=== PATIENT | female | born 1985 | race Caucasian/White ===

== ENCOUNTER → 2018-03-19 10:06 | Outpatient (CLI) | payer OTHER, SELFPAY ==
--- NOTE | 2018-03-19 10:11 | XR_ITS ---
EXAM: XR cervical spine 5V HISTORY: Neck pain and stiffness ITS.REASON: NECK PAIN ORDERING PHYSICIAN: Karuna Mendez MD PATIENT AGE: 33 years COMPARISON: None FINDINGS: Normal alignment. No fracture or dislocation. No lytic or blastic change. No significant degenerative change. The disc spaces are preserved. There is mild cervical curvature convex left with mild head tilt to the right. No cervical rib Foramina are widely patent IMPRESSION: Essentially negative cervical spine
== END ==
PROVIDERS: PCP Emergency Medicine; Visit Provider Emergency Medicine
DX: M54.2 Cervicalgia (principal)
CPT/HCPCS: 72050

== ENCOUNTER → 2019-10-02 08:58 | Outpatient (CLI) | payer OTHER, SELFPAY ==
[2019-10-02 10:02] LABS: Chloride 101 mmol/L (98-107)
[2019-10-02 10:03] LABS: Potassium 4.9 mmoL/L (3.5-5.1); Sodium 141 mmol/L (136-145)
[2019-10-02 10:06] LABS: Anion Gap 13.9 mEq/L (5-15); Blood Urea Nitrogen 19 mg/dl (7-17); Calcium 9.5 mg/dl (8.4-10.2); Carbon Dioxide 31 mmol/L (22.0-30.0); Estimated Glomerular Filt Rate 114 ml/min (>60); GFR (African American) 138 ML/MIN (>60); Glucose 78 mg/dl (74-100)
[2019-10-02 10:17] LABS: Basophils % 0.6 % (0.1-2.0); Eosinophils # 0.1 K/mm3 (0.0-0.4); Hematocrit 45.8 % (37.0-47.0); Hemoglobin 15.2 g/dL (12.2-16.2); Lymphocytes # 1.9 K/mm3 (0.7-4.5); Lymphocytes % 33.7 % (10-50); Mean Corpuscular HGB Conc 33.1 g/dL (31.8-35.4); Mean Corpuscular Hemoglobin 30.2 pg (27.0-31.2); Mean Corpuscular Volume 91.2 fl (81-99); Monocytes # 0.3 K/mm3 (0.1-1.0); Monocytes % 4.6 % (1.7-9.3); Neutrophils # 3.4 K/mm3 (1.8-7.8); Neutrophils % 59.1 % (37.0-80.0); Platelet Count 197 K/mm3 (142-424); Red Blood Count 5.02 M/mm3 (4.20-5.40); Red Cell Distribution Width 12.8 % (11.5-17.5); White Blood Count 5.7 K/mm3 (4.8-10.8)
[2019-10-02 10:35] LABS: HCG Qualitative, Serum Negative (Negative)
[2019-10-02 11:28] LABS: Coronavirus 19 IgG Antibody Positive (Negative); Coronavirus 19 IgM Antibody Negative (Negative)
== END ==
PROVIDERS: Visit Provider Nurse Practitioner Obstetrics & Gynecology
DX: Z01.818 Encounter for other preprocedural examination (principal); Z30.09 Encounter for other general counseling and advice on contraception; N92.0 Excessive and frequent menstruation with regular cycle
CPT/HCPCS: 36415; 80048; 84703; 85025; 86328

== ENCOUNTER 2019-10-03 06:08 | Day surgery (SDC) | payer OTHER, SELFPAY ==
[2019-10-01 09:01] VITALS: BMI 30.2
[2019-10-03] VITALS (12 sets, daily range): BP systolic 95–147; BP diastolic 55–82; PULSE 64–95; RESP 16–18; TEMP 36.7–43; O2SAT 96–98
--- NOTE | 2019-10-03 07:00 | HMH.ANESCL ---
[facility] Anesthesia Checklist - Patient Identification Patient Identification: Arm Band, Verbal (Name & ) - Structural Data Admitted From: Home Planned Operative Procedure/s: Laparoscopic bilateral salpingectomy, hysteroscopy, D&C, Novasure Consent for Planned Operative Procedure(s) Verified: Yes Verified Documents: Surgical Consent, History and Physical - NPO Status Verified Time NPO: 19:00 - Chart Verification Results Verified: CBC, BMP, UA, HCG - Additional verifications Patient : No Anesthesia Reactions: No Hx Blood Transfusions: Yes Blood Transfusion Reaction: No - Airway Assessment C-Spine Mobility Assessed: Yes TMJ Mobility Assessed: Yes Dentition: Good Dentition - Neurological Assessment Level of Consciousness: Awake, Alert, Appropriate, Follows Commands Hx Seizures: No Numbness or tingling in extremities: No - Anesthesia Plan Anesthesia Risk discussed: Yes Anesthesia Plan: Verified ASA Class: I Anesthesia Type: General [facility] History I have reviewed the patient's past medical history: Yes Medical History: Denies:: Cancer, Diabetes Mellitus Type 1, Diabetes Mellitus Type 2, Internal Pacemaker, MRSA, Seizures *Have you ever received a pneumonia vaccine?: No *Have you received a flu vaccine this season?: Yes Other Medical History: Denies: Blood Transfusion Reaction Comment:: obesity Anesthesia experience/problems:: No prior complications Other Surgeries: Yes: Cholecystectomy. No: Pacemaker Amputation: No Fractures: No - *Social History Last grade of school completed: Advanced degree Smoking Status: Never smoker Alcohol Intake: never Substance Use Type: denies use *Occupational Status:: employed Housing: house Household Members: family *Travel in the last 8 weeks: None Family Hx:: Coronary Artery Disease, Stroke, Hypertension, Diabetes, Cancer, Thyroid Disorder
--- NOTE | 2019-10-03 08:18 | HMH.OPNOTE ---
Date of procedure: 10/03/19 Pre-op Diagnosis:: Desire for sterilization, menorrhagia Post-op Diagnosis:: Desire for sterilization menorrhagia, endometriosis Procedure performed:: Laparoscopic bilateral salpingectomy, removal of bladder peritoneum endometriosis, hysteroscopy, dilation and curettage, NovaSure ablation, removal of IUD Surgeon:: Matt Leong MD [employer]OSING COORDINATOR:: Eb Randolph Anesthesia: GETA Estimated blood loss (mL): 100 Clinical Note:: She is a 34-year-old lady who complains of very heavy periods. She also expressed desire for sterilization. The risks and benefits as well as irreversibility of bilateral salpingectomy were discussed with the patient prior to surgery. She also asked me to remove her Mirena IUD. Operative findings:: She had a normal-appearing anteverted uterus. The pelvis appeared normal. The appendix was visualized and appeared normal. The ovaries and tubes appeared normal. On the bladder peritoneum just to the right of midline there was a small 3 mm powder burn area on the peritoneum consistent with endometriosis. The upper abdomen appeared normal as well. There was some adhesions of the omentum to the underside of the liver on the right side. Operative note:: She was taken to the operating room where general anesthesia was found be adequate. She was prepped and draped in normal sterile fashion in the semilithotomy position. A weighted speculum was placed in the vagina and the anterior lip of the cervix was grasped with a tenaculum. I then inserted a Paulina uterine manipulator into the cervical os. The balloon was then insufflated. I changed gloves and injected 10 cc of 0.5% ropivacaine around her umbilicus and made a small incision within the umbilicus. I inserted a Veress needle into the abdominal cavity. The peritoneal cavity was then insufflated with carbon dioxide gas to a pressure of 20 mmHg. I then inserted a 5 millimeter trocar under direct vision. I injected through and through the pubic hairline, made a small incision here and inserted an 8 mm trocar under direct vision. I identified the inferior epigastric artery on the left side, went lateral to these and injected through and through. I then placed a 5 mm trocar here under direct vision. The pelvis and upper abdomen were then inspected and the findings were as previously dictated. I grasped the right tube at the cornua and using harmonic scalpel on coagulation mode I cut through the tube. I then grasped the distal tube and using harmonic scalpel cut along the mesosalpinx. The tube was removed through 8 mm trocar site. This was similarly performed on the patient's left side. I then injected 30 cc of 0.5% ropivacaine into the pelvis. After assuring hemostasis the gas was let out of the abdomen and hemostasis was once again assured. The abdomen was then reinsufflated. The secondary trochars were removed under direct vision. The gas was let out her abdomen. The primary trocar was then removed. The 8 mm trocar site was closed deeply with 2-0 Vicryl suture followed by subcuticular 4-0 Monocryl suture. The 5 mm trocar sites were closed with subcuticular 4-0 Monocryl. Sterile dressings were applied. A weighted speculum was placed in the vagina and the anterior lip of the cervix was grasped with a tenaculum. The cervix was then dilated to approximately 6 mm. I then inserted a hysteroscope into the uterine cavity and the endometrial cavity appears lush. There was an IUD in place and I was able to remove this with a packing forceps. I then performed a gentle curettage with a medium curette. I then sounded the uterus and determine the length of the uterus. This was placed into the NovaSure device. I then inserted the NovaSure device and determine the width of the endometrial cavity. The cervix was quite patulous and I placed a tenaculum on the lateral side of the cervix to get good closure of the cervical canal.I then ran the device through its p
--- NOTE | 2019-10-03 08:25 | P.PN_ITS ---
[facility] Anesthesia Record Part I Intake, IV Amount: 900 Estimated blood loss (mL): 50 Urine output (mL): 50 Blood Products used (#): none Blood Pressure: 102/66 SaO2: 97 Pulse Rate: 64 Respiratory Rate: 16 Temperature: 98.2 F Patient is:: Awake, Drowsy, Stable Stable to PACU at:: 08:22
--- NOTE | 2019-10-03 10:14 | P.PN_ITS ---
[facility] Anesthesia Record Part II Discharge Time: 08:52 Destination: Surgical Day Care (OP Surgery) PACU nurse assessment reviewed?: Yes Patient Condition:: Good Anesthesia Complications:: None Swallowing reflex intact?: Yes Cyanosis?: No Blood Pressure: 97/56 Pulse Rate: 70 Temperature: 98.0 F Mental Status: Alert & Oriented Pain level:: 3 Nausea and/or vomitting:: None Intake, IV Amount: 0
== END 2019-10-03 09:38 | disposition home or self-care (01) ==
PROVIDERS: PCP Family Medicine; Visit Provider Nurse Practitioner Obstetrics & Gynecology
PROC: 0U5B8ZZ Destruction of Endometrium, Via Natural or Artificial Opening Endoscopic (ICD-10-PCS; CPT 58563; principal; 2019-10-03 07:30)
DX: Z30.2 Encounter for sterilization (principal); N92.0 Excessive and frequent menstruation with regular cycle; N80.3 Endometriosis of pelvic peritoneum; Z90.49 Acquired absence of other specified parts of digestive tract; Z82.49 Family history of ischemic heart disease and other diseases of the circulatory system; Z84.89 Family history of other specified conditions; Z83.3 Family history of diabetes mellitus; Z80.9 Family history of malignant neoplasm, unspecified; Z79.899 Other long term (current) drug therapy
CPT/HCPCS: 58661; 58563; 58301; 96374; J2405; J2710

== ENCOUNTER → 2022-05-12 14:22 | Outpatient (CLI) | payer BC, OTHER, SELFPAY ==
--- NOTE | 2022-05-12 14:23 | MM_ITS ---
PROCEDURE INFORMATION: Exam: Bilateral Diagnostic Breast Tomosynthesis Exam date and time: 05/12/2022 2:21 PM Age: 37 years old Clinical indication: Skin changes left breast; Cellulitis, pain, and burning of left breast. TECHNIQUE: Imaging protocol: Bilateral Diagnostic tomosynthesis and 2D mammography including computer-aided detection (CAD) when performed. Unilateral or bilateral exam. COMPARISON: No relevant prior studies available. FINDINGS: MAMMOGRAPHY: The breast tissue is composed of scattered areas of fibroglandular density. There is no stellate mass, architectural distortion or suspicious microcalcifications in either breast to suggest malignancy. No skin thickening or axillary adenopathy. IMPRESSION: Patient to return for left breast ultrasound for full evaluation of cellulitis and pain as described in the clinical intake. ASSESSMENT: BI-RADS Category 0: Incomplete- Need Additional Imaging Evaluation and/or Prior Mammograms for Comparison
== END ==
PROVIDERS: PCP Nurse Practitioner Family; Visit Provider Nurse Practitioner Family
DX: L03.90 Cellulitis, unspecified (principal); N64.59 Other signs and symptoms in breast
CPT/HCPCS: 77062; 77066; G0279

== ENCOUNTER → 2022-05-17 07:45 | Outpatient (CLI) | payer BC, OTHER, SELFPAY ==
--- NOTE | 2022-05-17 07:45 | US_ITS ---
PROCEDURE INFORMATION: Exam: US Left Breast, Complete Exam date and time: 05/17/2022 8:02 AM Age: 37 years old Clinical indication: Red/flattened area; Full evaluation of cellulitis to left breast TECHNIQUE: Imaging protocol: Complete ultrasound of all four quadrants of the left breast and the retroareolar regions, including ultrasound of the axilla when performed. COMPARISON: MG MM DIG MAMM BI DX W/CAD 05/12/2022 2:21 PM FINDINGS: Breast: Sonographic images of the left breast including the retroareolar region, all 4 quadrants and the axilla do not demonstrate any solid or cystic masses. No breast edema. No abscess. No architectural distortion or acoustical shadowing. No skin thickening or axillary adenopathy. IMPRESSION: No sonographic evidence of malignancy. No sonographic findings to suggest mastitis or abscess. In the absence of clinically suspicious findings,annual bilateral mammographic screening is recommended to commence at the age of 40 ASSESSMENT: BI-RADS Category 1: Negative
== END ==
PROVIDERS: PCP Nurse Practitioner Family; Visit Provider Nurse Practitioner Family
DX: N64.59 Other signs and symptoms in breast (principal); L03.818 Cellulitis of other sites
CPT/HCPCS: 76641

== ENCOUNTER 2024-03-13 15:00 | Outpatient (CLI) | payer BC, SELFPAY ==
[2024-03-13 20:53] LABS: Alanine Aminotransferase 23 U/L (12-78); Albumin Level 4.4 g/dl (3.5-5.0); Albumin/Globulin Ratio 1.5 (1.1-1.8); Alkaline Phosphatase 82 U/L (38-126); Anion Gap 13.3 mEq/L (5-15); Aspartate Amino Transferase 29 U/L (14-36); Bilirubin,Total 0.6 mg/dl (0.2-1.3); Blood Urea Nitrogen 17 mg/dl (7-17); Calcium 9.1 mg/dl (8.4-10.2); Carbon Dioxide 25 mmol/L (22.0-30.0); Chloride 103 mmol/L (98-107); Estimated Glomerular Filt Rate 111 ml/min (>60); GFR (African American) 135 ML/MIN (>60); Glucose 76 mg/dl (74-100); Potassium 4.3 mmoL/L (3.5-5.1); Sodium 137 mmol/L (136-145); Total Protein,Serum 7.4 g/dl (6.3-8.2)
== END 2024-03-13 23:59 | disposition home or self-care (01) ==
LOC: LAB.DROPOF 03-14 10:22
PROVIDERS: PCP Nurse Practitioner Family; Visit Provider Nurse Practitioner Family
DX: R10.2 Pelvic and perineal pain (principal); M54.16 Radiculopathy, lumbar region; M79.18 Myalgia, other site; M54.50 Low back pain, unspecified; R10.32 Left lower quadrant pain
CPT/HCPCS: 80053

== ENCOUNTER 2024-03-13 15:25 | Outpatient (CLI) | payer BC, SELFPAY ==
--- NOTE | 2024-03-13 15:31 | XR_ITS ---
FINAL REPORT CLINICAL HISTORY: lumbar pain COMPARISON: None FINDINGS: 3 views of the lumbar spine were obtained. There is no evidence of fracture. There is no malalignment. The vertebrae are normal in height. There is lumbar scoliosis convex to the right measuring approximately 10 degrees. Mild disc space narrowing is noted at L5-S1. No paraspinous soft tissue abnormalities identified. IMPRESSION: Mild degenerative changes without acute bony abnormality. Reviewed, Interpreted and Dictated by Zane Good MD Transcribed by Chapis Dinh Authenticated and [facility]
--- NOTE | 2024-03-13 15:31 | XR_ITS ---
FINAL REPORT CLINICAL HISTORY: left hip pain, left groin pain COMPARISON: None FINDINGS: LEFT HIP: Two views of the left hip with an AP view of the pelvis demonstrate no acute fracture or dislocation. The joint spaces appear normal. The visualized bony structures are well aligned. No soft tissue abnormality is seen. IMPRESSION: No acute bony abnormality. Reviewed, Interpreted and Dictated by Zane Good MD Transcribed by Chapis Dinh Authenticated and . [facility]
[2024-03-13 16:33] LABS: Microscopic, Urine URINE MICROSCOPIC (MICROSCOPIC)
[2024-03-13 17:11] LABS: Basophils % 0.5 % (0.1-2.0); Eosinophils # 0.1 K/mm3 (0.0-0.4); Eosinophils % 1.6 % (0.1-12.0); Hematocrit 40.7 % (37.0-47.0); Hemoglobin 13.6 g/dL (12.2-16.2); Lymphocytes # 1.9 K/mm3 (0.7-4.5); Lymphocytes % 21.8 % (10-50); Mean Corpuscular HGB Conc 33.4 g/dL (31.8-35.4); Mean Corpuscular Hemoglobin 29.1 pg (27.0-31.2); Mean Platelet Volume 9.5 fl (7.4-10.4); Monocytes # 0.6 K/mm3 (0.1-1.0); Monocytes % 7.1 % (1.7-9.3); Neutrophils % 68.8 % (37.0-80.0); Platelet Count 264 K/mm3 (142-424); Red Blood Count 4.68 M/mm3 (4.20-5.40); Red Cell Distribution Width 12.9 % (11.5-17.5); White Blood Count 8.7 K/mm3 (4.8-10.8)
[2024-03-13 17:33] LABS: Appearance,Urine CLEAR (Clear); Bilirubin,Urine Negative (Negative); Blood, Urine Negative (Negative); Color,Urine YELLOW (Yellow); Glucose,Urine (UA) Negative (Negative); Ketones,Urine Negative (Negative); Leukocyte Esterase,Urine Negative (Negative); Nitrate,Urine Negative (Negative); Protein,Urine Negative (Negative); Specific Gravity, Urine 1.015 (1.005-1.030); Urobilinogen,Urine 0.2 EU/dl (0.2)
[2024-03-13 17:56] LABS: Erythrocyte Sedimentation Rate 6 mm/hr (0-20)
[2024-03-13 17:57] LABS: Cholesterol 206 mg/dl (140-200); Iron 89 ug/dL (37-170); Triglycerides 226 mg/dl (30-150); VLDL Cholesterol 45 mg/dL (0-40)
[2024-03-13 17:58] LABS: Chol/HDL Ratio 5.2 (1-3.5); HDL Cholesterol 40 mg/dl (40-60); Magnesium 1.8 mg/dl (1.6-2.3); Phosphorous 4.3 mg/dl (2.5-4.5)
[2024-03-13 18:04] LABS: C-Reactive Protein 4.9 mg/L (0-4)
[2024-03-13 18:07] LABS: Total Iron Binding Capacity 316 ug/dL (265-497)
[2024-03-13 18:16] LABS: Free T4 (Free Thyroxine) 0.92 ng/dl (0.78-2.19)
[2024-03-13 18:18] LABS: 25-OH Vitamin D, Total 44.7 ng/mL (30-100)
[2024-03-13 18:27] LABS: Hemoglobin A1C 4.8 % (4.0-6.0)
[2024-03-13 18:30] LABS: Thyroid Stimulating Hormone 1.26 uIU/mL (0.465-4.68)
[2024-03-13 18:34] LABS: Ferritin 66.9 ng/ml (6.24-137)
[2024-03-13 18:39] LABS: HIV Combo NEGATIVE (Negative)
[2024-03-13 18:47] LABS: Hepatitis C Ab Qual. W/ RFX NEGATIVE (Negative)
[2024-03-13 19:00] LABS: Vitamin B12 736 pg/mL (239-931)
[2024-03-13 19:57] LABS: Amorphous Sediment,Urine 3+ /lpf; Bacteria,Urine 1+ /lpf
== END 2024-03-13 23:59 | disposition home or self-care (01) ==
LOC: RAD 15:26
PROVIDERS: PCP Nurse Practitioner Family; Visit Provider Nurse Practitioner Family
DX: M25.552 Pain in left hip (principal); R10.32 Left lower quadrant pain; M54.50 Low back pain, unspecified; M79.18 Myalgia, other site; M54.16 Radiculopathy, lumbar region; R53.83 Other fatigue; Z68.35 Body mass index [BMI] 35.0-35.9, adult; R10.2 Pelvic and perineal pain; Z11.4 Encounter for screening for human immunodeficiency virus [HIV]; Z11.59 Encounter for screening for other viral diseases; E53.8 Deficiency of other specified B group vitamins; Z13.220 Encounter for screening for lipoid disorders; Z13.1 Encounter for screening for diabetes mellitus
CPT/HCPCS: 72100; 73502; 80061; 81001; 82306; 82607; 82728; 83036; 83540; 83550; 83735; 84100; 84439; 84443; 85025; 85651; 86140; 86803; 87086; 87389

== ENCOUNTER 2024-04-04 17:00 | Outpatient (RCR) | payer BC, SELFPAY ==
--- NOTE | 2024-03-17 17:12 | HMH.PTOPEV ---
PT Outpatient Evaluation Rehab PT Outpatient Evaluation Start: 03/17/24 16:48 Freq: Status: Active Protocol: Document 03/17/24 16:48 COSMO (Rec: 03/17/24 17:12 COSMO [id number]) E-signed By Heath Aleman, PT Outpatient Therapy Subjective History Subjective History The pt is a 39 yof who presents to [facility] outpatient Physical Therapy with complaints of low back pain that refers into the LLE. She reports that she has had LBP on/off for about 2 years. However, in this past September, she bent over while on the commode and reports, my back felt like it went out. She reports that since then she has had a fairly constant pain . She reports that at times, she feels as if her left leg is heavy and that it may go numb.. She reports that being in the same position for longer periods can aggravate her back. She also reports that any type of bending or twisting can exacerbate her symptoms. 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 The pt reports that she has been prescribed Flexeril and Lyrica which seem like they have helped somewhat. She also reports that she has been seeing both a chiropractor and massage therapist for this issue since September. New diagnosis of cancer in past 12 No months? Chief Complaint Pain Symptom Type Ache,Sharp,Shooting Symptoms Relieved By Heat,Ice,Prescription Meds Symptoms Aggravated By Supine,Sitting,Standing, Bending/Stooping,Physical Activity,Twisting,Walking, Lifting Prior Functional Limitations None Current Functional Limitations None,Lifting,Housework,Driving ,Standing,Sitting,Squatting, Walking Level of pain today (0-10) 2 Pain scale - at its best (0-10) 2 Pain scale - at its worst (0-10) 10 Lumbopelvic Eval Posture Thoracic Spine Posture Standing Position Neutral Lumbar Spine Posture Standing Position Flexible Scoliosis on (L) Gait Observation General Gait Pattern Observation No Deviations/Normal Palapation tenderness bilateral paraspinal tenderness Yes: B TTP 2/4 to lumbar paraspinals Accessory Movement L2 bilateral L3 bilateral L4 bilateral L5 bilateral Range of Motion Lumbar Spine Active Flexion Range of 100% Motion (degrees) Lumbar Spine Active Extension Range of 20% Motion (degrees) Left Lumbar Spine Lateral Flexion Active 25% Range of Motion (degrees) Right Lumbar Spine Lateral Flexion 25% Active Range of Motion (degrees) Lumbar Spine ROM Limitations Pain Manual Muscle Test Bilateral Knee Extension Strength Grade 5 Normal Knee Flexion Strength Grade 4- Good- Hip Flexion Strength Grade 4- Good- Hip Abduction Strength Grade 3+ Fair+ Hip Extension Strength Grade 3+ Fair+ Ankle Dorsiflexion Strength Grade 5 Normal Gastronemius/Soleus Strength Grade 5 Normal DTR Rt Patellar 2+ Lt Patellar 2+ Rt Gastroc/Soleus 2+ Lt Gastroc/Soleus 2+ Altered Sensation Bilateral Comment No dermatomal sensation losses Special Tests Lumbar Spine Screen Positive Hip Scouring (Quadrant) Test Negative Left,Negative Right Hip Douglas (AMOL) Test Negative Right,Positive Left Hip Erika Test Negative Left,Negative Right Sciatic Nerve Tension Test Positive Left,Positive Right Unilateral Straight Leg Raise (Lasegue) Positive Left,Positive Right Test Crossed Straight Leg Raise Test Positive Left,Positive Right Hip Sienna's Test Negative Left,Negative Right Sacroiliac Joint Compression Test Negative Left,Negative Right Sacroiliac Joint Distraction Test Negative Left,Negative Right Oswestry Index Section 1 Pain Intensity The pain is moderate and does not vary much Section 2 Personal Care (Washing,Dresing) my way of washing or dressing even though it causes some pain Section 3 Lifting lifting heavy weights off the floor, but I can manage light to medium Section 4 Walking I have some pain when walking but it does not increase with distance Section 5 Sitting I can sit in my favorite chair for as long as I like Section 6 Standing I have some pain on standing, but it does not increase with time Section 7 Sleeping I get pain in bed, but it does not prevent me from sleeping well Section 8 Social Life Pain has no significant effect on my social life apart from limiting Section 9 Traveling I get some pain when traveling , but none of my usual forms of travel m Section 10 Changing Degreee of Pain My pain seems to be getting better, but improvement is slow Score and Risk Level Oswestry Sc 17 Oswestry Risk Level Moderate Disability Miscellaneous Dx PT Eval Objective Objective SL PIVMS: - Limitations into Extension and pain provoked. Eddie Exam: I: 5,4,3,0 Standing Flexion: 6,5,3,0 Standing Extension: 7,5,3,0 DKTC: 7,6,3,0 PPU: 7,6,3,0 Outpatient Therapy Assessment Impairments Problems/Impairmments Palpation Tenderness,Impaired Range of Motion,Impaired Strength,Impaired Standing, Impaired Sitting,Impaired Lifting,Impaired Squatting, Subjective C/O Pain Prognosis Rehab Potential Good Clinical Impression Consistent with Diagnosis Yes Consistent with Low back pain with referred LE pain Additional details: The patient presents with signs and symptoms of low back pain with related/referred pain into her left lower extremity. The pt demonstrates clear decrements into lumbar extension with a firm end feel . She also demonstrates a clear flexion directional preference. The pt would benefit from skilled PT to address the above impairments and to promote a return to her PLOF. Short Term Goals Number of Weeks 4 Decreased Palpation Tenderness Yes: 1/4 to B lumbar paraspinals Increase Range of Motion Yes: 50% lumbar extension and lateral flexion Increase Strength Yes: 4/5 to B hips/knees Increase Ability to Stand Yes: 30 minutes without increasing pain Increase Ability to Sit Yes: 30 minutes without increasing pain Improve Ability to Bend Yes: without increasing pain Improve Oswestry Score Yes: Mild Disability Decrease Subjective C/O Pain Yes: 5/10 with above activities Patient to be Ind w/ HEP Yes [employer] Goals Number of Weeks 8 Decreased Palpation Tenderness Yes: 0/4 to B lumbar paraspinals Increase Range of Motion Yes: 100% Lumbar extension and lateral flexion Increase Strength Yes: 5/5 to B hips/knees Increase Ability to Stand Yes: 1 hour without increasing pain Increase Ability to Sit Yes: 1 hour without increasing pain Improve Ability For Household Care Yes: Clean house without increasing pain Improve Oswestry Score Yes: No disability Decrease Subjective C/O Pain Yes: 3/10 with above activities Patient to be Ind w/ Advanced HEP Yes Outpatient Therapy Plan of Care Treatment Plan May Include Therapeutic Exercise Including Home Yes Exercise Program Manual Therapy Techniques Yes Neuromuscular Re-education Yes Therapeutic Activities to Return to Yes Previous Functional/Work Level Gait Training Yes ADL/Self Care Education Yes Mechanical Traction Yes Dry Needling Yes Thermal Modalities Yes Electrical Stimulation Yes Ultrasound/Phonophoresis Yes Massage Yes Manual Lymphatic Drainage Yes Eval/Re-Eval Yes Frequency Times per week 1-2 Duration Number of Weeks 8 Addendums This patient is a candidate for social No or vocational rehab? Patient/Guardian verbally acknowledges Yes understanding of treatment program and consents to further treatment? Patient/Guardian verbally acknowledges Yes understanding of diagnosis, prognosis and goals for treatment? Eval Complexity PT Charges 68091 - Moderate Complexity Shoulder/Elbow Eval Shoulder Objective Measurements Elbow Objective Measurements PHYSICIAN CERTIFICATION: I certify the specified therapy services for Campbell Gomez are required, authorized, and reviewed every 30 days.
== END 2024-04-04 23:59 | disposition home or self-care (01) ==
LOC: PT 17:00
PROVIDERS: Visit Provider Nurse Practitioner Family
DX: M54.50 Low back pain, unspecified (principal); M25.552 Pain in left hip; M79.18 Myalgia, other site; R10.32 Left lower quadrant pain
CPT/HCPCS: 97014; 97110; 97140; 97163; 97530; G0283

== ENCOUNTER 2024-05-02 16:00 | Outpatient (RCR) | payer BC, SELFPAY ==
--- NOTE | 2024-04-18 16:57 | HMH.RHREAS ---
Rehab Reassessment Rehab OP Re-assessment Start: 04/08/24 16:37 Freq: Status: Active Protocol: Document 04/18/24 16:32 COSMO (Rec: 04/18/24 16:57 COSMO [id number]) E-signed By Heath Aleman, PT Oswestry Index Section 1 Pain Intensity The pain comes and goes and is moderate Section 2 Personal Care (Washing,Dresing) change my way of washing or dressing in order to avoid pain Section 3 Lifting I can lift heavy weights without extra pain Section 4 Walking I have some pain when walking but it does not increase with distance Section 5 Sitting I can sit in any chair for as long as I like Section 6 Standing I have some pain on standing, but it does not increase with time Section 7 Sleeping I get pain in bed, but it does not prevent me from sleeping well Section 8 Social Life My social life is normal and gives me no extra pain Section 9 Traveling I get some pain when traveling , but none of my usual forms of travel m Section 10 Changing Degreee of Pain My pain is getting better Score and Risk Level Oswestry Sc 6 Oswestry Risk Level Mild Disability Rehab Re-assessment Subjective Subjective Pt reports that she has improved 70% so far. She reports that she no longer has constant pain and for the most part, the pain stays centralized to her back. She reports that she is able to clean her house with more ease but still has some pain when she cleans for longer periods. She reports that she is able to stand for up to an hour at this point before the pain begins and sit for approximately 30 minutes. She reports that her biggest difficulty now is getting out of the car after she has been driving for longer periods. She reports her current pain at a 4/10. Objective Objective Notes KERRY: 6 (17 on IE) Strength: 5/5 to B hips/knees TTP: 1/4 to Lumbar paraspinals L L2-L4 Assessment Progress Assessment Progressing as Expected Assessment Notes Pt has made significant progress thus far and has demonstrated improvements in Lumbar ROM, strength, pain and reported function. Pt still presents below her baseline at this point. She has met several of her stated therapy goals at this time. Skilled PT remains indicated for this pt . Patient goals met ST, 2, 3, 4, 5, 7, 8,9 LT,3,[address] LT,4,6,7,8,9 Plan Plan Continue as per initial POC Frequency of Therapy 2/week Duration of therapy 4 weeks Time and Billing Re-Eval Time 11 Re-Eval Billing Units 1 Charge for PT reassessment? Yes PHYSICIAN CERTIFICATION: I certify the specified therapy services for Campbell Gomez are required, authorized, and reviewed every 30 days.
== END 2024-05-02 23:59 | disposition home or self-care (01) ==
LOC: PT 16:00
PROVIDERS: Visit Provider Nurse Practitioner Family
DX: M54.50 Low back pain, unspecified (principal); M25.552 Pain in left hip; M79.18 Myalgia, other site; R10.32 Left lower quadrant pain
CPT/HCPCS: 97110; 97140; 97164; 97530

== ENCOUNTER 2024-05-30 16:00 | Outpatient (RCR) | payer BC, SELFPAY ==
--- NOTE | 2024-05-13 17:58 | HMH.RHREAS ---
Rehab Reassessment Rehab OP Re-assessment Start: 05/06/24 16:05 Freq: Status: Active Protocol: Document 05/13/24 16:34 COSMO (Rec: 05/13/24 17:58 COSMO [id number]) E-signed By Heath Aleman, PT Oswestry Index Section 1 Pain Intensity The pain is mild and does not vary much Section 2 Personal Care (Washing,Dresing) change my way of washing or dressing in order to avoid pain Section 3 Lifting I can lift heavy weights, but it gives me extra pain Section 4 Walking I have some pain when walking but it does not increase with distance Section 5 Sitting I can sit in my favorite chair for as long as I like Section 6 Standing I have some pain on standing, but it does not increase with time Section 7 Sleeping I get pain in bed, but it does not prevent me from sleeping well Section 8 Social Life My social life is normal and gives me no extra pain Section 9 Traveling I get extra pain while traveling, but it does not compel me to seek al Section 10 Changing Degreee of Pain My pain fluctuates, but overall is definitely getting better Score and Risk Level Oswestry Sc 9 Oswestry Risk Level Mild Disability Rehab Re-assessment Subjective Subjective Pt reports that she is 80% improved at this point. She reports that she is able to recognize her triggers and knows how to avoid things that will cause her to hurt. She reports that bending has improved. She also reports that getting in/out of the vehicle has improved. Still reports difficulty with sitting long periods and with sudden movements such as playing with her kids. Reports her pain at a 5/10 at worst with activities. Objective Objective Notes KERRY: 9 (6 on last RA) Strength: 5/5 to B LEs globally ROM: 75% WNL of AROM Globally TTP: 1/4 to L3,L4 L>R Assessment Progress Assessment Progressing as Expected Assessment Notes Pt has made some progress this date. Still presents below baseline in functional areas, such as sitting for longer periods and has pain doing her normal daily work duties. Skilled PT remains indicated at this time. Patient goals met ST, 2, 3, 4, 5, 7, 8,9 LT,3,5,6,7 Plan Plan Continue as per initial POC Frequency of Therapy 1-2/week Duration of therapy 4 weeks Time and Billing Re-Eval Time 10 Re-Eval Billing Units 1 Charge for PT reassessment? Yes PHYSICIAN CERTIFICATION: I certify the specified therapy services for Campbell Gomez are required, authorized, and reviewed every 30 days.
== END 2024-05-30 23:59 | disposition home or self-care (01) ==
LOC: PT 16:00
PROVIDERS: Visit Provider Nurse Practitioner Family
DX: M54.50 Low back pain, unspecified (principal); M25.552 Pain in left hip; R10.32 Left lower quadrant pain; M79.18 Myalgia, other site
CPT/HCPCS: 97110; 97140; 97164; 97530

== ENCOUNTER 2024-06-24 16:00 | Outpatient (RCR) | payer BC, SELFPAY | END 2024-06-24 23:59 | disposition home or self-care (01) | LOC: PT 16:00 | PROVIDERS: Visit Provider Nurse Practitioner Family | DX: M25.552 Pain in left hip (principal); M54.50 Low back pain, unspecified; R10.32 Left lower quadrant pain; M79.18 Myalgia, other site | CPT/HCPCS: 97110; 97140; 97530 ==

== ENCOUNTER 2024-09-29 11:00 | Outpatient (RCR) | payer OTHER, SELFPAY ==
--- NOTE | 2024-09-11 10:58 | HMH.PTOPEV ---
PT Outpatient Evaluation Rehab PT Outpatient Evaluation Start: 09/11/24 09:55 Freq: Status: Active Protocol: Document 09/11/24 09:55 COSMO (Rec: 09/11/24 10:57 COSMO [id number]) E-signed By Heath Aleman, PT Outpatient Therapy Subjective History Subjective History Pt is a 39 yof who is referred to [facility] outpatient PT with complaints of LBP that radiates down her L leg. Pt sought PT for the same issue earlier this year. Pt reports that her pain has been much better than it was when she previous sought care but reports that she has noticed that her pain has progressively gotten worse in the past two months. She reports that she had two events where she believes she set her pain back. She reports that she rode a rollercoaster and her niece jumped in her arms causing her to tense up. She reports that she has been doing a couple of her exercises from her previous round of PT, but not as consistently as she did. She reports that she has been going to her massage therapist monthly, and she is seeing a chiropractor every 2 weeks. PMH: None New diagnosis of No cancer in past 12 months? Chief Complaint Pain,Stiff Symptom Type Ache Symptoms Relieved By Activity,Elevation Symptoms Aggravated Standing,Bending/Stooping,Walking,Lifting By Prior Functional None Limitations Current Functional Lifting,Housework,Standing,Sitting Limitations Symptom Description Intermittent,Activity Dependent Level of pain today 4 (0-10) Pain scale - at its 0 best (0-10) Pain scale - at its 7 worst (0-10) Lumbopelvic Eval Posture Lumbar Spine Posture Increased Lordosis Standing Position Palapation tenderness left lumbar spinal Yes: L3-S1 TTP 3/4 tenderness paraspinal Yes: L3-S1 TTP 3/4 L paraspinals, QL tenderness buttock tenderness Yes: L SI joint TTP 3/4 Lumbar/Sacral Tenderness,Trigger Point Palpation Findings Lumbar/Sacral Palpable tautness and TrP to L QL, and L Lumbar Palpation Overall Paraspinals Comment Accessory Movement L3 left L4 left L5 left S1 left Range of Motion Lumbar Spine Active 100% Flexion Range of Motion (degrees) Lumbar Spine Active 100% Extension Range of Motion (degrees) Left Lumbar Spine 50% Lateral Flexion Active Range of Motion (degrees) Right Lumbar Spine 50% Lateral Flexion Active Range of Motion (degrees) Lumbar Spine ROM Soft Tissue Tightness Limitations Manual Muscle Test Bilateral Knee Extension 4+ Good+ Strength Grade Knee Flexion 4+ Good+ Strength Grade Hip Flexion Strength 4 Good Grade Hip Abduction 4- Good- Strength Grade Hip Adduction 4- Good- Strength Grade Hip External 4- Good- Rotation Strength Grade Hip Internal 4- Good- Rotation Strength Grade Hip Extension 4- Good- Strength Grade Ankle Dorsiflexion 5 Normal Strength Grade Gastronemius/Soleus 5 Normal Strength Grade DTR Rt Patellar 2+ Lt Patellar 2+ Rt Gastroc/Soleus 2+ Lt Gastroc/Soleus 2+ Altered Sensation Bilateral Comment Intact to LT gobally Special Tests Hip Scouring ( Positive Left Quadrant) Test Hip Douglas (AMOL) Positive Left Test Sciatic Nerve Negative Left Tension Test Sacroiliac Joint Positive Left Compression Test Sacroiliac Joint Positive Left Distraction Test Oswestry Index Section 1 Pain Intensity The pain comes and goes and is very mild Section 2 Personal Care ( change my way of washing or dressing in order to avoid Washing,Dresing) pain Section 3 Lifting I can lift heavy weights, but it gives me extra pain Section 4 Walking I have some pain when walking but it does not increase with distance Section 5 Sitting I can sit in my favorite chair for as long as I like Section 6 Standing I have some pain on standing, but it does not increase with time Section 7 Sleeping I get pain in bed, but it does not prevent me from sleeping well Section 8 Social Life My social life is normal and gives me no extra pain Section 9 Traveling I get some pain when traveling, but none of my usual forms of travel m Section 10 Changing Degreee of My pain fluctuates, but overall is definitely getting Pain better Score and Risk Level Oswestry Sc 7 Oswestry Risk Level Mild Disability Miscellaneous Dx PT Eval Objective Objective 5/5 + Tests for SI joint Dysfunction Excessive anterior pelvic tilt in standing Abdominal Strength: 2/5 MMT Outpatient Therapy Assessment Impairments Problems/ Palpation Tenderness,Impaired Range of Motion,Impaired Impairmments Strength,Impaired Standing,Impaired Sitting,Impaired Lifting,Impaired Household Care,Impaired Stair Climbing ,Impaired Squatting,Impaired Bending,Impaired Recreational Activities,Subjective C/O Pain Prognosis Rehab Potential Good Clinical Impression Consistent with Yes 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 Number of Weeks 8 Decreased Palpation Yes: 0-1/4 to TTP assessment above Tenderness Increase Range of Yes: - Leno Test, and decreased anterior pelvic tilt Motion in standing Increase Strength Yes: 5/5 to B hips and 4/5 to abdominals Increase Ability to Yes: 1 hour without increasing symptoms Stand Improve Ability For Yes: without increasing symptoms Household Care Improve Oswestry Yes: <3 Score Decrease Subjective Yes: 1-2/10 with above assessment C/O Pain Patient to be Ind w/ Yes Advanced HEP Outpatient Therapy Plan of Care Treatment Plan May Include Therapeutic Exercise Yes Including Home Exercise Program Manual Therapy Yes Techniques Neuromuscular Re- Yes education Therapeutic Yes Activities to Return to Previous Functional/Work Level Gait Training Yes ADL/Self Care Yes Education Mechanical Traction Yes Dry Needling Yes Thermal Modalities Yes Electrical Yes Stimulation Massage Yes Manual Lymphatic Yes Drainage Eval/Re-Eval Yes Frequency Times per week 2 Duration Number of Weeks 6 Addendums This patient is a No candidate for social or vocational rehab ? Patient/Guardian Yes verbally acknowledges understanding of treatment program and consents to further treatment? Patient/Guardian Yes verbally acknowledges understanding of diagnosis, prognosis and goals for treatment? Eval Complexity PT Charges 82335 - Moderate Complexity Shoulder/Elbow Eval Shoulder Objective Measurements Elbow Objective Measurements PHYSICIAN CERTIFICATION: I certify the specified therapy services for Campbell Gomez are required, authorized, and reviewed every 30 days.
== END 2024-09-29 23:59 | disposition home or self-care (01) ==
LOC: PT 11:00
PROVIDERS: PCP Nurse Practitioner Family; Visit Provider Nurse Practitioner Family
DX: M99.79 Connective tissue and disc stenosis of intervertebral foramina of abdomen and other regions; M41.9 Scoliosis, unspecified; M54.16 Radiculopathy, lumbar region; X58.XXXA Exposure to other specified factors, initial encounter
CPT/HCPCS: 97110; 97112; 97140; 97162; 97530

== ENCOUNTER 2024-10-27 11:00 | Outpatient (RCR) | payer OTHER, SELFPAY ==
--- NOTE | 2024-10-09 12:55 | HMH.RHREAS ---
Rehab Reassessment Rehab OP Re-assessment Start: 10/03/24 09:03 Freq: Status: Active Protocol: Document 10/09/24 11:13 COSMO (Rec: 10/09/24 12:55 COSMO [id number]) E-signed By Heath Aleman, PT Oswestry Index Section 1 Pain Intensity The pain comes and goes and is very mild Section 2 Personal Care ( change my way of washing or dressing in order to avoid Washing,Dresing) pain Section 3 Lifting I can lift heavy weights, but it gives me extra pain Section 4 Walking I have some pain when walking but it does not increase with distance Section 5 Sitting I can sit in any chair for as long as I like Section 6 Standing I can stand as long as I want without pain Section 7 Sleeping I get pain in bed, but it does not prevent me from sleeping well Section 8 Social Life My social life is normal and gives me no extra pain Section 9 Traveling I get extra pain while traveling, but it does not compel me to seek al Section 10 Changing Degreee of My pain is getting better Pain Score and Risk Level Oswestry Sc 5 Oswestry Risk Level Mild Disability Rehab Re-assessment Subjective Subjective Pt reports that she is approximately 75% improved this date. Reports that she has days where she has no pain at all. Pt reports that driving/riding the car still give her difficulties. Pt reports that overall, her pain is definitely improving. Pt reports that she can stand for a few hours at a time and is having little difficulty with household care at this time. Pt reports that her pain is a 4/10 this date, which would report this is a typical level of pain. Pt reports that PT is definitely helping and would like to continue for another month. Objective Objective Notes KERRY: 5 (7 on IE) TTP: 2/4 to L5-S1 and SI joint on L side. Leno Test: + for slight psoas tightness Lumbar ROM: - Flexion 100% with slight pain - Extension 75% with slight pain - Lateral flexion 75% with slight bilaterally MMT: - B hip flexion 4+/5 - B hip ABD 4+/5 - B hip ADD 4+/5 - abdominals 4/5 Posture: anterior pelvic tilt in standing, able to correct with VC. Assessment Progress Assessment Progressing as Expected Assessment Notes Pt has undergone one month of skilled PT, consisting of core strengthening, lumbopelvic motor control training and strengthening of her bilateral hips. Pt has responded well to PT thus far, with decreased pain levels, improved strength and mobility. The pt has met many of her short and shelter goals at this time and is progressing well. The pt would continue to benefit from skilled PT to address her remaining impairments, in order to reach her remaining goals and to promote a return to her PLOF. PT Patient Goals PT Short Term ST/5 Patient Goals PT Skilled Nursing Patient LT,5 Goals Plan Plan Pt would benefit from continue PT, consisting of the following activities, in order to address her remaining impairments as stated in the above's assessment. Frequency of Therapy 2/week Duration of Therapy 4 weeks Therapeutic Exercise Yes Including Home Exercise Program Manual Therapy Yes Techniques Neuromuscular Re- Yes education Therapeutic Yes Activities to Return to Previous Functional/Work Level Gait Training Yes ADL/Self Care Yes Education Thermal Modalities Yes Electrical Yes Stimulation Massage Yes Manual Lymphatic Yes Drainage Time and Billing Re-Eval Time 10 Re-Eval Billing 0 Units Charge for PT No reassessment? PHYSICIAN CERTIFICATION: I certify the specified therapy services for Campbell Gomez are required, authorized, and reviewed every 30 days.
== END 2024-10-27 23:59 | disposition home or self-care (01) ==
LOC: PT 11:00
PROVIDERS: PCP Nurse Practitioner Family; Visit Provider Nurse Practitioner Family
DX: S76.312A Strain of muscle, fascia and tendon of the posterior muscle group at thigh level, left thigh, initial encounter (principal); M99.79 Connective tissue and disc stenosis of intervertebral foramina of abdomen and other regions; M41.9 Scoliosis, unspecified; M54.16 Radiculopathy, lumbar region
CPT/HCPCS: 97110; 97530

== ENCOUNTER 2024-11-13 08:00 | Outpatient (RCR) | payer OTHER, SELFPAY ==
--- NOTE | 2024-11-04 14:30 | HMH.RHREAS ---
Rehab Reassessment Rehab OP Re-assessment Start: 11/04/24 13:00 Freq: Status: Active Protocol: Document 11/04/24 13:00 COSMO (Rec: 11/04/24 14:29 COSMO [id number]) E-signed By Heath Aleman, PT Oswestry Index Section 1 Pain Intensity The pain comes and goes and is very mild Section 2 Personal Care ( change my way of washing or dressing in order to avoid Washing,Dresing) pain Section 3 Lifting I can lift heavy weights, but it gives me extra pain Section 4 Walking I have some pain when walking but it does not increase with distance Section 5 Sitting Pain prevents me from sitting for more than one hour Section 6 Standing I have some pain on standing, but it does not increase with time Section 7 Sleeping I get pain in bed, but it does not prevent me from sleeping well Section 8 Social Life My social life is normal and gives me no extra pain Section 9 Traveling I get some pain when traveling, but none of my usual forms of travel m Section 10 Changing Degreee of My pain fluctuates, but overall is definitely getting Pain better Score and Risk Level Oswestry Score 8 Oswestry Risk Level Mild Disability Rehab Re-assessment Subjective Subjective Pt reports that she is 75-80% improved since initial evaluation. Pt reports that she has not noticed a huge improvement since the prior reassessment. Pt reports that she will have flare ups from time to time, but she will have several days where she is completely pain free. Pt reports that she has been consistently doing her exercises at home. Pt reports that her pain today is a 3/10, which she reports is a pretty good today. Pt reports that she would like to continue with PT for just a few more weeks. Objective Objective Notes KERRY: 8 (7 on IE) TTP: 1/4 to L5-S1 and SI joint on L side. Leno Test: + for slight psoas tightness Lumbar ROM: - Flexion 100% - Extension 75% with slight pain - Lateral flexion 75% with slight bilaterally MMT: - B hip flexion 5/5 - B hip ABD 5/5 - B hip ADD 5/5 - abdominals 5/5 Posture: anterior pelvic tilt in standing, able to correct with VC. Assessment Progress Assessment Progressing as Expected Assessment Notes Pt has undergone one month of skilled PT, consisting of core strengthening, lumbopelvic motor control training and strengthening of her bilateral hips. Pt has responded well to PT thus far, with decreased pain levels, improved strength and mobility. 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 The pt would continue to benefit from skilled PT to address her remaining impairments, in order to reach her remaining goals and to promote a return to her PLOF. 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 Begin plan to discharge to advanced home program. Frequency of Therapy 2/weel Duration of Therapy 4 weeks Therapeutic Exercise Yes Including Home Exercise Program Manual Therapy Yes Techniques Neuromuscular Re- Yes education Therapeutic Yes Activities to Return to Previous Functional/Work Level Dry Needling Yes Thermal Modalities Yes Electrical Yes Stimulation Massage Yes Eval/Re-Eval Yes Time and Billing Re-Eval Time 10 Re-Eval Billing 0 Units Charge for PT No reassessment? PHYSICIAN CERTIFICATION: I certify the specified therapy services for Campbell Gomez are required, authorized, and reviewed every 30 days.
== END 2024-11-13 23:59 | disposition home or self-care (01) ==
LOC: PT 08:00
PROVIDERS: PCP Nurse Practitioner Family; Visit Provider Nurse Practitioner Family
DX: S76.312A Strain of muscle, fascia and tendon of the posterior muscle group at thigh level, left thigh, initial encounter (principal); M99.79 Connective tissue and disc stenosis of intervertebral foramina of abdomen and other regions; M41.9 Scoliosis, unspecified; M54.16 Radiculopathy, lumbar region
CPT/HCPCS: 97110; 97112; 97530